=== PATIENT | female | born 1970 | race African-American/Black ===

== ENCOUNTER 2017-03-06 21:37 | Inpatient (IN) | payer OTHER ==
[~2017-03-06] VITALS: Ht 160 cm; Wt 108.9 kg
[2017-03-07] VITALS (14 sets, daily range): BP systolic 109–133; BP diastolic 56–84
[2017-03-07] MEDS ORDERED: ASPI1TAB30 PO (00:18)
[2017-03-07] MEDS ORDERED: CHOL2000 PO (00:18)
[2017-03-07] MEDS ORDERED: MULT-208 PO (00:18)
[2017-03-07] MEDS ORDERED: OMEG-128 PO (00:18)
[2017-03-07] MEDS ORDERED: OMEG1CAP6 PO (00:18)
[2017-03-07] MEDS: IV NORMAL SALINE 1000ML BAG 1,000 ML IV SCH ×4 (00:29→20:30)
[2017-03-07] MEDS ORDERED: ONDANSETRON PF 4 MG/2 ML VIAL. IV PRN ×3 (00:30→11:15)
[2017-03-07] MEDS ORDERED: MORPHINE SULFATE 4 MG/ML DISP.SYRIN. IV PRN (00:30)
[2017-03-07] MEDS ORDERED: PIP/TAZO PER PHARMACY MC PRN (00:30)
[2017-03-07] MEDS: PIPERACILLIN/TAZOBACTAM 4.5 GM in IV NORMAL SALINE 100ML 100 ML IV SCH ×5 (00:56→23:54)
[2017-03-07] MEDS ORDERED: BUPIVAC MPF-EPI 0.5%-1:200000 30 ML VIAL. ONE (07:04)
[2017-03-07] MEDS ORDERED: IV RINGERS,LACTATED 1000ML 1,000 ML IV SCH (07:05)
[2017-03-07] MEDS ORDERED: SURGICEL HEMOSTAT 4X8 EACH. ONE (07:05)
[2017-03-07] MEDS ORDERED: DESFLURANE 61 TO 120 MINUTES IH ONE (07:10)
[2017-03-07] MEDS ORDERED: fentaNYL PF VIAL 100 MCG/2 ML VIAL ONE (07:11)
[2017-03-07] MEDS ORDERED: NEOSTIGMINE METHYLSULFATE 5 MG/5 ML SYRINGE. ONE (07:11)
[2017-03-07] MEDS ORDERED: SUCCINYLCHOLINE 200 MG/10 ML VIAL. ONE (07:11)
[2017-03-07] MEDS ORDERED: ROCURONIUM 100 MG/10 ML VIAL. ONE (07:11)
[2017-03-07] MEDS ORDERED: MIDAZOLAM HCL/PF 2 MG/2 ML VIAL. ONE (07:11)
[2017-03-07] MEDS ORDERED: GLYCOPYRROLATE 1 MG/5 ML VIAL. ONE (07:11)
[2017-03-07] MEDS ORDERED: KETOROLAC 60 MG/2 ML INJ FOR OR. ONE (07:12)
[2017-03-07] MEDS ORDERED: DEXAMETHASONE SOD PHOS 20 MG/5 ML VIAL. ONE (07:12)
[2017-03-07] MEDS ORDERED: LIDOCAINE 2% 100 MG/5 ML SYRINGE. ONE (07:12)
[2017-03-07] MEDS ORDERED: PROPOFOL 20 ML IV ONE (07:12)
[2017-03-07] MEDS ORDERED: ONDANSETRON PF 4 MG/2 ML VIAL. ONE (07:12)
[2017-03-07] MEDS ORDERED: PROCHLORPERAZINE 10 MG/2 ML VIAL. IV PRN (07:15)
[2017-03-07] MEDS ORDERED: fentaNYL PF VIAL 100 MCG/2 ML VIAL IV PRN ×2 (07:15)
[2017-03-07] MEDS ORDERED: LIDOCAINE 1% 1 ML SYRINGE. ID PRN (07:15)
[2017-03-07] MEDS ORDERED: HYDROmorphone 2 MG/ML VIAL IV PRN (07:15)
[2017-03-07] MEDS ORDERED: MORPHINE SULFATE 2 MG/ML DISP.SYRIN. IV PRN (07:15)
--- NOTE | 2017-03-07 07:43 | PDOC ---
Provider Note Provider Note #[id number]--amklldw. CRISTIANO NELSON MD March 07, 2017 07:43
[2017-03-07 07:50] LABS: ALBUMIN 3.1 g/dL (3.4-5.0); ALBUMIN/GLOBULIN RATIO 0.8 (1.0-1.7); CALCIUM 8.2 mg/dL (8.5-10.1); CREATININE 0.9 mg/dL (0.6-1.0); GFR 81.6; POTASSIUM 3.2 mmol/L (3.5-5.1); TOTAL BILIRUBIN 0.7 mg/dL (0.2-1.0); TOTAL PROTEIN 7.1 g/dL (6.4-8.2)
[2017-03-07 08:00] LABS: HEMATOCRIT 34.4 % (36.0-47.0); HEMOGLOBIN 11.3 g/dL (12.0-15.5); RED BLOOD COUNT 4.12 x10^6/uL (3.50-5.40); RED CELL DISTRIBUTION WIDTH 15.7 % (11.5-14.5)
--- NOTE | 2017-03-07 08:31 | CONS ---
DATE OF CONSULTATION: 03/07/2017 CHIEF COMPLAINT: Abdominal pain. HISTORY OF PRESENT ILLNESS: The patient is a very pleasant 47-year-old female who presents with abdominal pain since yesterday. At first the pain felt like a hunger pain within the epigastric region, but then it slowly changed and became a sharp pain located in her right lateral abdomen almost in her right back and right upper quadrant. It became severe and she was unable to walk without significant pain with associated nausea and vomiting. The pain is constant, worse with movement and sharp in nature. When she was seen in the [place] ER where a CT scan was performed which demonstrated acute appendicitis, she was transferred down for antibiotics and laparoscopic appendectomy. PAST MEDICAL HISTORY: Denies. PAST SURGICAL HISTORY: 1. . 2. Foot surgery. HOME MEDICATIONS: 1. Excedrin p.r.n. 2. Vitamin D. 3. Fish oil. ALLERGIES: None. SOCIAL HISTORY: Nonsmoker, nondrinker. She is and she is employed in the [employer]. FAMILY HISTORY: Noncontributory to this illness. REVIEW OF SYSTEMS: CONSTITUTIONAL: No fevers or chills. EYES: No abrupt loss of vision or double vision. EARS, NOSE, MOUTH, AND THROAT: No loss of hearing or ringing in her ears. CARDIOVASCULAR: No chest pain or heart palpitations. RESPIRATORY: No cough, shortness of breath. GASTROINTESTINAL: See HPI. GENITOURINARY: No dysuria or hematuria. HEMATOLOGIC: No easy bleeding or bruising. MUSCULOSKELETAL: No new myalgias or arthralgias. DERMATOLOGIC: No new skin rashes or lesions. PSYCHIATRIC: No depression or anxiety. ENDOCRINE: No polyuria or polydipsia. PHYSICAL EXAMINATION: VITAL SIGNS: She is afebrile, heart rate 73, pulse is 18, blood pressure is 109/60. GENERAL: This is a well-developed, well-nourished female in no acute distress. Her BMI is 42.5. HEENT: Eyes; pupils are round and reactive. Sclerae nonicteric. She is wearing glasses. Head is atraumatic. Mucous membranes are moist. Face symmetric. NECK: Supple without cervical lymphadenopathy, no supraclavicular lymphadenopathy. Neck is nontender. CARDIOVASCULAR: Regular rate and rhythm. EXTREMITIES: 2+ right radial pulse. No pedal edema. RESPIRATORY: Chest wall is nontender to palpations, respirations are nonlabored. She is on room air. ABDOMEN: Soft, nondistended. She is tender lateral and superior to McBurney's point with rebound, no Rovsing sign. DERMATOLOGIC: Exposed portions of her skin are unremarkable without rashes or lesions. PSYCHIATRIC: She is cooperative with appropriate mood and affect. NEUROLOGIC: She can move all 4 extremities without difficulty. She is alert and oriented x 3. LABORATORY DATA: Lab from [facility] was reviewed. CT scan report as well as images were reviewed. ASSESSMENT: 1. Acute retrocecal appendicitis. 2. Morbid obesity with a BMI of 42.5. PLAN: The patient is being taken to the operating room for laparoscopic appendectomy, possible open. Of note, documentation of a negative test was not available from her ER visit at [facility]. My suspicion is that one would have been done before a CT scan, but I am unable to find documentation of that. She denies and we discussed the reality that if she were , my recommendation would be to proceed with laparoscopic appendectomy, possible open, out of risk of loss for untreated or delayed treatment of acute appendicitis. We also discussed that surgery in the first trimester may be associated with loss or congenital deformities, but since my treatment recommendation would not change regardless of the test results, the decision has been made to proceed with laparoscopic appendectomy. We will, at the time of Hernandez placement, get a sample of urine and send it for test just to have documentation, either positive or negative for . Additional risk of surgery include bleeding, infection, need to convert to open, injury to intra-abdominal structures, postoperative abscess and remote risk of heart attack, stroke, DVT, PE, pneumonia, and . Questions were answered. She desires to proceed with the procedure. CRISTIANO NELSON MD DR: MINDY/laureen JOB#: [id number] / [id number] TAZ Lazo MD
[2017-03-07 09:20] LABS: NEG OBC UR NEG; POS OBC UR POS
[2017-03-07] MEDS ORDERED: OXYC-323 PO (10:47)
--- NOTE | 2017-03-07 11:10 | PDOC1 ---
History and Physical Date of Admission Date of Admission 03/06/17 Identification/Chief Complaint Chief Complaint abd pain Problems: Source Source: Chart review, Patient History of Present Illness History of Present Illness 47yo F, no PMH, was transferred from [facility] for acute merle. Pt started to have abd pain early today, epigastric, then moved down to right lower abd, severe ,no N/V. BM normal. no fever, chills, cough ,sob, chest pain. She went to [facility] ER, CT showed acute appendicities. pt seen post op today, feels ok for now. Past Medical History Past Medical History none Past Surgical History Past Surgical History: Family History Family History: No Significant Social History Smoke: No ALCOHOL: none Drugs: None Current Medications Current Medications Current Medications Medications (Trade) Dose Ordered Sig/Gregorio Start Time Stop Time Status Last Admin Dose Admin Bupivacaine HCl/ Epinephrine Bitart (Sensorcain-Mpf Epi 0.5%-1:932691) 30 ml STK-MED ONCE 03/07/17 07:04 03/07/17 07:05 DC 03/07/17 08:25 6 ML Cellulose 1 each STK-MED ONCE 03/07/17 07:05 03/07/17 07:06 DC Desflurane (Suprane) 60 ml STK-MED ONCE 03/07/17 07:10 03/07/17 07:11 DC Dexamethasone Sodium Phosphate (Decadron) 20 mg STK-MED ONCE 03/07/17 07:12 03/07/17 07:13 DC Fentanyl Citrate (Fentanyl 2ml Vial) 100 mcg STK-MED ONCE 03/07/17 07:11 03/07/17 07:12 DC Glycopyrrolate (Robinul) 1 mg STK-MED ONCE 03/07/17 07:11 03/07/17 07:12 DC Hydromorphone HCl (Dilaudid) 0.5 mg PRN Q10MIN PRN 03/07/17 07:15 03/08/17 07:14 Ketorolac Tromethamine (Toradol For Or Only) 60 mg STK-MED ONCE 03/07/17 07:12 03/07/17 07:13 DC Lidocaine HCl (Lidocaine HCl 2% Abboject) 100 mg STK-MED ONCE 03/07/17 07:12 03/07/17 07:13 DC Midazolam HCl (Versed) 2 mg STK-MED ONCE 03/07/17 07:11 03/07/17 07:12 DC Morphine Sulfate 1 mg PRN Q10MIN PRN 03/07/17 07:15 03/08/17 07:14 Neostigmine Methylsulfate 5 mg STK-MED ONCE 03/07/17 07:11 03/07/17 07:12 DC Ondansetron HCl (Zofran) 4 mg STK-MED ONCE 03/07/17 07:12 03/07/17 07:13 DC Piperacillin Sod/ Tazobactam Sod (Zosyn Per Pharmacy) 1 each PRN DAILY PRN 03/07/17 00:30 Piperacillin Sod/ Tazobactam Sod 4.5 gm/Sodium Chloride 100 ml @ 200 mls/hr Q6HRS 03/07/17 00:45 03/07/17 00:56 200 MLS/HR Prochlorperazine Edisylate (Compazine) 5 mg PACU PRN PRN 03/07/17 07:15 03/08/17 07:14 03/07/17 09:25 5 MG Propofol 20 ml @ As Directed STK-MED ONCE 03/07/17 07:12 03/07/17 07:13 DC Rocuronium [place] (Zemuron) 100 mg STK-MED ONCE 03/07/17 07:11 03/07/17 07:12 DC Sodium Chloride 1,000 ml @ 150 mls/hr Q6H40M 03/07/17 00:30 03/07/17 00:29 150 MLS/HR Succinylcholine Chloride (Anectine) 200 mg STK-MED ONCE 03/07/17 07:11 03/07/17 07:12 DC Allergies Allergies Allergies Coded Allergies Type Severity Reaction Last Updated Verified No Known Drug Allergies 03/07/17 No ROS Review of System CONSTITUTIONAL: No fever or chills EYES: No recent changes SKIN: No rash or itching CARDIOVASCULAR: No chest pain, syncope, palpitations, or edema RESPIRATORY: No SOB or cough GASTROINTESTINAL: No nausea, vomiting or abdominal pain NEUROLOGICAL: No headaches or weakness ENDOCRINE: No cold or heat intolerance GENITOURINARY: No urgency or frequency of urination MUSCULOSKELETAL: No back pain or joint pain LYMPHATICS: No enlarged lymph nodes PSYCHIATRIC: No anxiety or depression Physical Exam Physical Exam GEN.: No apparent distress. Alert and oriented. HEENT: Head is normocephalic, atraumatic NECK: Supple. LUNGS: Clear to auscultation. HEART: RRR, S1, S2 present. Peripheral pulses intact ABDOMEN: Soft, Positive bowel sounds. mild abd tenderness, clean sx wound EXTREMITIES: Without any cyanosis. NEUROLOGIC: Normal speech, normal tone PSYCHIATRIC: Normal affect, normal mood. SKIN: No ulcerations Vitals Vitals Vital Signs Date Time Temp Pulse Resp B/P (MAP) Pulse Ox O2 Delivery O2 Flow Rate FiO2 03/07/17 10:16 Nasal Cannula 2.0 03/07/17 09:55 97.4 68 20 124/71 96 97.4 Labs Labs Laboratory Tests Test 03/07/17 03:30 03/07/17 08:15 White Blood Count 9.0 x10^3/uL (4.0-11.0) Red Blood Count 4.12 x10^6/uL (3.50-5.40) Hemoglobin 11.3 g/dL (12.0-15.5) Hematocrit 34.4 % (36.0-47.0) Mean Corpuscular Volume 84 fL (79-100) Mean Corpuscular Hemoglobin 28 pg (25-35) Mean Corpuscular Hemoglobin Concent 33 g/dL (31-37) Red Cell Distribution Width 15.7 % (11.5-14.5) Platelet Count 162 x10^3/uL (140-400) Sodium Level 140 mmol/L (136-145) Potassium Level 3.2 mmol/L (3.5-5.1) Chloride Level 106 mmol/L (98-107) Carbon Dioxide Level 23 mmol/L (21-32) Anion Gap 11 (6-14) Blood Urea Nitrogen 10 mg/dL (7-20) Creatinine 0.9 mg/dL (0.6-1.0) Estimated GFR (Cockcroft-Gault) 81.6 BUN/Creatinine Ratio 11 (6-20) Glucose Level 109 mg/dL (70-99) Calcium Level 8.2 mg/dL (8.5-10.1) Total Bilirubin 0.7 mg/dL (0.2-1.0) Aspartate Amino Transf (AST/SGOT) 14 U/L (15-37) Alanine Aminotransferase (ALT/SGPT) 21 U/L (14-59) Alkaline Phosphatase 72 U/L (46-116) Total Protein 7.1 g/dL (6.4-8.2) Albumin 3.1 g/dL (3.4-5.0) Albumin/Globulin Ratio 0.8 (1.0-1.7) Urine Test Negative (NEG) Laboratory Tests Test 03/07/17 03:30 03/07/17 08:15 White Blood Count 9.0 x10^3/uL (4.0-11.0) Red Blood Count 4.12 x10^6/uL (3.50-5.40) Hemoglobin 11.3 g/dL (12.0-15.5) Hematocrit 34.4 % (36.0-47.0) Mean Corpuscular Volume 84 fL (79-100) Mean Corpuscular Hemoglobin 28 pg (25-35) Mean Corpuscular Hemoglobin Concent 33 g/dL (31-37) Red Cell Distribution Width 15.7 % (11.5-14.5) Platelet Count 162 x10^3/uL (140-400) Sodium Level 140 mmol/L (136-145) Potassium Level 3.2 mmol/L (3.5-5.1) Chloride Level 106 mmol/L (98-107) Carbon Dioxide Level 23 mmol/L (21-32) Anion Gap 11 (6-14) Blood Urea Nitrogen 10 mg/dL (7-20) Creatinine 0.9 mg/dL (0.6-1.0) Estimated GFR (Cockcroft-Gault) 81.6 BUN/Creatinine Ratio 11 (6-20) Glucose Level 109 mg/dL (70-99) Calcium Level 8.2 mg/dL (8.5-10.1) Total Bilirubin 0.7 mg/dL (0.2-1.0) Aspartate Amino Transf (AST/SGOT) 14 U/L (15-37) Alanine Aminotransferase (ALT/SGPT) 21 U/L (14-59) Alkaline Phosphatase 72 U/L (46-116) Total Protein 7.1 g/dL (6.4-8.2) Albumin 3.1 g/dL (3.4-5.0) Albumin/Globulin Ratio 0.8 (1.0-1.7) Urine Test Negative (NEG) VTE Prophylaxis Ordered VTE Prophylaxis Devices: Yes VTE Pharmacological Prophylaxi: No Assessment/Plan Assessment/Plan 1 acute appendicitis post lap appendectomy on 03/07 2. morbid obesity 3. migraine, chronic 4. hypokalemia plan: 1. fu with sx, post op care 2. ivf pain control cont home meds replete K on zosyn, should be able to dc when dc, hope tmr CHUY MOREL MD March 07, 2017 11:10
[2017-03-07] MEDS ORDERED: POTASSIUM CHLORIDE 20 MEQ TABLET.ER. PO ONE (11:15)
[2017-03-07] MEDS ORDERED: ACETAMINOPHEN 325 MG TABLET. PO PRN (11:15)
[2017-03-07] MEDS ORDERED: ASA/APAP/CAFFEINE 250/250/65MG TABLET. PO PRN (11:15)
[2017-03-07] MEDS: CHOLECALCIFEROL (VITAMIN D3) 1,000 UNIT TABLET PO SCH (11:51)
[2017-03-07] MEDS: MULTIVITAMIN with MINERAL TABLET. PO SCH (11:51)
[2017-03-07] MEDS: OMEGA-3 FATTY ACIDS/FISH OIL 1,000 MG CAPSULE. PO SCH (11:51)
--- NOTE | 2017-03-07 12:44 | PDOC ---
BRIEF OPERATIVE NOTE Pre-Op Diagnosis appendicitis lap appy osmar nelson ebl 10 ivf 1000 mayuri well to rr stable. CRISTIANO NELSON MD March 07, 2017 12:44
--- NOTE | 2017-03-07 14:30 | OP ---
DATE OF SURGERY: 03/07/2017 PREOPERATIVE DIAGNOSIS: Acute appendicitis. POSTOPERATIVE DIAGNOSIS: Acute appendicitis. PROCEDURE: Laparoscopic appendectomy. SURGEON: Cristiano Nelson M.D. ANESTHESIA: General. ESTIMATED BLOOD LOSS: 10 mL. IV FLUIDS: 2000 mL. INDICATIONS: The patient is a 47-year-old female who presents with acute appendicitis. FINDINGS: She had acute nonperforated, nongangrenous, retrocecal appendicitis. DESCRIPTION OF PROCEDURE: After informed consent was obtained, the patient was taken to the operating room and placed in supine position. After adequate induction of general anesthesia, she was prepped and draped in usual sterile fashion. An umbilical skin incision was made with a scalpel, subcutaneous tissues with a hemostat. [facility] was used to grab the fascia and lift it anteriorly. Veress was used to gain access to the peritoneal cavity. Low opening pressures confirmed intraperitoneal placement of Veress. Pneumoperitoneum to 15 mmHg was established followed by placement of a 5 mm port. A 5 mm 30 degree lens was inserted, which revealed good port placement. No evidence of entry trauma. She was placed head down and rotated towards her left. She did have some adhesions of the omentum in her left lower quadrant; therefore, her ports were placed, one was a 5 mm suprapubic port to the right of midline under direct laparoscopic vision, one was a right upper quadrant 12 mm port. Both were placed after injecting with local anesthetic and both were placed under direct vision. The base of appendix was unremarkable. Window was made at the base of the appendix with a [place] dissector. Laparoscopic CARTER blue load stapler was used to divide the base of appendix. Laparoscopic CARTER white load stapler was used to divide the mesoappendix. The appendix was placed in laparoscopic bag and brought out through the right upper quadrant incision. The appendix had been retrocecal. There were some bleeding from the mesoappendiceal staple line that was controlled with application of a clip mirror inspector. Otherwise, the right upper quadrant was irrigated. Irrigant returned clear. Pelvis was irrigated. Irrigant returned clear. Right upper quadrant was irrigated and the irrigant returned clear. Staple lines were intact and hemostatic. Fascial closure device was used to close the fascia at right upper quadrant incision. Ports were removed under direct vision. They were hemostatic. Pneumoperitoneum was desufflated. Skin incisions were closed with 4-0 Monocryl in subcuticular fashion. Sterile dressings were placed. She tolerated the procedure well. There were no apparent complications. She was then transferred in stable condition to the recovery room. CRISTIANO NELSON MD DR: MINDY/laureen JOB#: [id number] / [id number] TAZ Lazo MD
[2017-03-07] MEDS: oxyCODONE/APAP 5/325 1 TAB TABLET PO PRN ×2 (17:22→21:29)
[2017-03-08 03:20] VITALS: BP 149/75
[2017-03-08] MEDS: oxyCODONE/APAP 5/325 1 TAB TABLET PO PRN ×2 (03:23→08:12)
[2017-03-08 05:29] LABS: BASO % 0 % (0-3); EOS % 0 % (0-3); HEMATOCRIT 31.7 % (36.0-47.0); HEMOGLOBIN 10.4 g/dL (12.0-15.5); LYMPH # 1.7 x10^3/uL (1.0-4.8); LYMPH % 18 % (24-48); MEAN CORPUSCULAR HEMOGLOBIN 27 pg (25-35); MEAN CORPUSCULAR HGB CONC 33 g/dL (31-37); MEAN CORPUSCULAR VOLUME 83 fL (79-100); MONO % 6 % (0-9); NEUT % 76 % (31-73); PLATELET COUNT 174 x10^3/uL (140-400); RED CELL DISTRIBUTION WIDTH 15.3 % (11.5-14.5); WHITE BLOOD COUNT 9.7 x10^3/uL (4.0-11.0)
[2017-03-08] MEDS: PIPERACILLIN/TAZOBACTAM 4.5 GM in IV NORMAL SALINE 100ML 100 ML IV SCH (05:33)
[2017-03-08 05:41] LABS: CALCIUM 8.6 mg/dL (8.5-10.1); GFR 72.2; POTASSIUM 3.5 mmol/L (3.5-5.1)
[2017-03-08 07:00] VITALS: BP 106/60
[2017-03-08] MEDS: OMEGA-3 FATTY ACIDS/FISH OIL 1,000 MG CAPSULE. PO SCH (08:10)
[2017-03-08] MEDS: MULTIVITAMIN with MINERAL TABLET. PO SCH (08:11)
[2017-03-08] MEDS: CHOLECALCIFEROL (VITAMIN D3) 1,000 UNIT TABLET PO SCH (08:11)
--- NOTE | 2017-03-08 09:53 | PDOC ---
MARGOT WEBB LIFE EDUCATOR 03/08/17 0953: SURGICAL PROGRESS NOTE Subjective tolerating diet pain improved from surgery no n/v urinating Vital Signs Vital Signs Date Time Temp Pulse Resp B/P (MAP) Pulse Ox O2 Delivery O2 Flow Rate FiO2 03/08/17 09:12 Room Air 03/08/17 07:00 97.5 59 16 106/60 (75) 97 97.5 03/07/17 14:00 2.0 I&O Intake and Output 03/08/17 07:00 Intake Total 1773 ml Output Total 475 ml Balance 1298 ml Intake Oral 780 ml IV Total 993 ml Output Urine Total 475 ml # Voids 2 General: Alert, Oriented X3, Cooperative, No acute distress Abdomen: Soft, Other (lap dressings dry, incisional TTP) Labs Laboratory Tests Test 03/07/17 03:30 03/07/17 08:15 03/08/17 05:20 White Blood Count 9.0 x10^3/uL (4.0-11.0) 9.7 x10^3/uL (4.0-11.0) Red Blood Count 4.12 x10^6/uL (3.50-5.40) 3.80 x10^6/uL (3.50-5.40) Hemoglobin 11.3 g/dL (12.0-15.5) 10.4 g/dL (12.0-15.5) Hematocrit 34.4 % (36.0-47.0) 31.7 % (36.0-47.0) Mean Corpuscular Volume 84 fL (79-100) 83 fL (79-100) Mean Corpuscular Hemoglobin 28 pg (25-35) 27 pg (25-35) Mean Corpuscular Hemoglobin Concent 33 g/dL (31-37) 33 g/dL (31-37) Red Cell Distribution Width 15.7 % (11.5-14.5) 15.3 % (11.5-14.5) Platelet Count 162 x10^3/uL (140-400) 174 x10^3/uL (140-400) Sodium Level 140 mmol/L (136-145) 139 mmol/L (136-145) Potassium Level 3.2 mmol/L (3.5-5.1) 3.5 mmol/L (3.5-5.1) Chloride Level 106 mmol/L (98-107) 107 mmol/L (98-107) Carbon Dioxide Level 23 mmol/L (21-32) 24 mmol/L (21-32) Anion Gap 11 (6-14) 8 (6-14) Blood Urea Nitrogen 10 mg/dL (7-20) 10 mg/dL (7-20) Creatinine 0.9 mg/dL (0.6-1.0) 1.0 mg/dL (0.6-1.0) Estimated GFR (Cockcroft-Gault) 81.6 72.2 BUN/Creatinine Ratio 11 (6-20) Glucose Level 109 mg/dL (70-99) 126 mg/dL (70-99) Calcium Level 8.2 mg/dL (8.5-10.1) 8.6 mg/dL (8.5-10.1) Total Bilirubin 0.7 mg/dL (0.2-1.0) Aspartate Amino Transf (AST/SGOT) 14 U/L (15-37) Alanine Aminotransferase (ALT/SGPT) 21 U/L (14-59) Alkaline Phosphatase 72 U/L (46-116) Total Protein 7.1 g/dL (6.4-8.2) Albumin 3.1 g/dL (3.4-5.0) Albumin/Globulin Ratio 0.8 (1.0-1.7) Urine Test Negative (NEG) Neutrophils (%) (Auto) 76 % (31-73) Lymphocytes (%) (Auto) 18 % (24-48) Monocytes (%) (Auto) 6 % (0-9) Eosinophils (%) (Auto) 0 % (0-3) Basophils (%) (Auto) 0 % (0-3) Neutrophils # (Auto) 7.4 x10^3uL (1.8-7.7) Lymphocytes # (Auto) 1.7 x10^3/uL (1.0-4.8) Monocytes # (Auto) 0.6 x10^3/uL (0.0-1.1) Eosinophils # (Auto) 0.0 x10^3/uL (0.0-0.7) Basophils # (Auto) 0.0 x10^3/uL (0.0-0.2) Laboratory Tests Test 03/08/17 05:20 White Blood Count 9.7 x10^3/uL (4.0-11.0) Red Blood Count 3.80 x10^6/uL (3.50-5.40) Hemoglobin 10.4 g/dL (12.0-15.5) Hematocrit 31.7 % (36.0-47.0) Mean Corpuscular Volume 83 fL (79-100) Mean Corpuscular Hemoglobin 27 pg (25-35) Mean Corpuscular Hemoglobin Concent 33 g/dL (31-37) Red Cell Distribution Width 15.3 % (11.5-14.5) Platelet Count 174 x10^3/uL (140-400) Neutrophils (%) (Auto) 76 % (31-73) Lymphocytes (%) (Auto) 18 % (24-48) Monocytes (%) (Auto) 6 % (0-9) Eosinophils (%) (Auto) 0 % (0-3) Basophils (%) (Auto) 0 % (0-3) Neutrophils # (Auto) 7.4 x10^3uL (1.8-7.7) Lymphocytes # (Auto) 1.7 x10^3/uL (1.0-4.8) Monocytes # (Auto) 0.6 x10^3/uL (0.0-1.1) Eosinophils # (Auto) 0.0 x10^3/uL (0.0-0.7) Basophils # (Auto) 0.0 x10^3/uL (0.0-0.2) Sodium Level 139 mmol/L (136-145) Potassium Level 3.5 mmol/L (3.5-5.1) Chloride Level 107 mmol/L (98-107) Carbon Dioxide Level 24 mmol/L (21-32) Anion Gap 8 (6-14) Blood Urea Nitrogen 10 mg/dL (7-20) Creatinine 1.0 mg/dL (0.6-1.0) Estimated GFR (Cockcroft-Gault) 72.2 Glucose Level 126 mg/dL (70-99) Calcium Level 8.6 mg/dL (8.5-10.1) Assessment/Plan s/p lap appy ok to PR home FU 2 weeks Problems: CRISTIANO NELSON MD 03/08/17 1122: SURGICAL PROGRESS NOTE Assessment/Plan i saw her today. smiling, wanting to go home. doing well. agree with dc today. Problems: MARGOT WEBB APRN March 08, 2017 09:53 CRISTIANO NELSON MD March 08, 2017 11:22
[2017-03-08 11:00] VITALS: BP 129/74
--- NOTE | 2017-03-08 12:07 | PDOC3 ---
Discharge Summary Visit Information Date of Admission: March 07, 2017 Date of Discharge: March 08, 2017 Admitting Diagnosis: abd pain Final Diagnosis 1 acute appendicitis post lap appendectomy on 03/07 2. morbid obesity 3. migraine, chronic 4. hypokalemia p Brief Hospital Course Allergies Allergies Coded Allergies Type Severity Reaction Last Updated Verified No Known Drug Allergies 03/07/17 No Vital Signs Vital Signs Date Time Temp Pulse Resp B/P (MAP) Pulse Ox O2 Delivery O2 Flow Rate FiO2 03/08/17 11:00 98.1 65 16 129/74 (92) 96 Room Air 98.1 03/07/17 14:00 2.0 Lab Results Laboratory Tests Test 03/07/17 03:30 03/07/17 08:15 03/08/17 05:20 White Blood Count 9.0 x10^3/uL (4.0-11.0) 9.7 x10^3/uL (4.0-11.0) Red Blood Count 4.12 x10^6/uL (3.50-5.40) 3.80 x10^6/uL (3.50-5.40) Hemoglobin 11.3 g/dL (12.0-15.5) 10.4 g/dL (12.0-15.5) Hematocrit 34.4 % (36.0-47.0) 31.7 % (36.0-47.0) Mean Corpuscular Volume 84 fL (79-100) 83 fL (79-100) Mean Corpuscular Hemoglobin 28 pg (25-35) 27 pg (25-35) Mean Corpuscular Hemoglobin Concent 33 g/dL (31-37) 33 g/dL (31-37) Red Cell Distribution Width 15.7 % (11.5-14.5) 15.3 % (11.5-14.5) Platelet Count 162 x10^3/uL (140-400) 174 x10^3/uL (140-400) Sodium Level 140 mmol/L (136-145) 139 mmol/L (136-145) Potassium Level 3.2 mmol/L (3.5-5.1) 3.5 mmol/L (3.5-5.1) Chloride Level 106 mmol/L (98-107) 107 mmol/L (98-107) Carbon Dioxide Level 23 mmol/L (21-32) 24 mmol/L (21-32) Anion Gap 11 (6-14) 8 (6-14) Blood Urea Nitrogen 10 mg/dL (7-20) 10 mg/dL (7-20) Creatinine 0.9 mg/dL (0.6-1.0) 1.0 mg/dL (0.6-1.0) Estimated GFR (Cockcroft-Gault) 81.6 72.2 BUN/Creatinine Ratio 11 (6-20) Glucose Level 109 mg/dL (70-99) 126 mg/dL (70-99) Calcium Level 8.2 mg/dL (8.5-10.1) 8.6 mg/dL (8.5-10.1) Total Bilirubin 0.7 mg/dL (0.2-1.0) Aspartate Amino Transf (AST/SGOT) 14 U/L (15-37) Alanine Aminotransferase (ALT/SGPT) 21 U/L (14-59) Alkaline Phosphatase 72 U/L (46-116) Total Protein 7.1 g/dL (6.4-8.2) Albumin 3.1 g/dL (3.4-5.0) Albumin/Globulin Ratio 0.8 (1.0-1.7) Urine Test Negative (NEG) Neutrophils (%) (Auto) 76 % (31-73) Lymphocytes (%) (Auto) 18 % (24-48) Monocytes (%) (Auto) 6 % (0-9) Eosinophils (%) (Auto) 0 % (0-3) Basophils (%) (Auto) 0 % (0-3) Neutrophils # (Auto) 7.4 x10^3uL (1.8-7.7) Lymphocytes # (Auto) 1.7 x10^3/uL (1.0-4.8) Monocytes # (Auto) 0.6 x10^3/uL (0.0-1.1) Eosinophils # (Auto) 0.0 x10^3/uL (0.0-0.7) Basophils # (Auto) 0.0 x10^3/uL (0.0-0.2) Laboratory Tests Test 03/08/17 05:20 White Blood Count 9.7 x10^3/uL (4.0-11.0) Red Blood Count 3.80 x10^6/uL (3.50-5.40) Hemoglobin 10.4 g/dL (12.0-15.5) Hematocrit 31.7 % (36.0-47.0) Mean Corpuscular Volume 83 fL (79-100) Mean Corpuscular Hemoglobin 27 pg (25-35) Mean Corpuscular Hemoglobin Concent 33 g/dL (31-37) Red Cell Distribution Width 15.3 % (11.5-14.5) Platelet Count 174 x10^3/uL (140-400) Neutrophils (%) (Auto) 76 % (31-73) Lymphocytes (%) (Auto) 18 % (24-48) Monocytes (%) (Auto) 6 % (0-9) Eosinophils (%) (Auto) 0 % (0-3) Basophils (%) (Auto) 0 % (0-3) Neutrophils # (Auto) 7.4 x10^3uL (1.8-7.7) Lymphocytes # (Auto) 1.7 x10^3/uL (1.0-4.8) Monocytes # (Auto) 0.6 x10^3/uL (0.0-1.1) Eosinophils # (Auto) 0.0 x10^3/uL (0.0-0.7) Basophils # (Auto) 0.0 x10^3/uL (0.0-0.2) Sodium Level 139 mmol/L (136-145) Potassium Level 3.5 mmol/L (3.5-5.1) Chloride Level 107 mmol/L (98-107) Carbon Dioxide Level 24 mmol/L (21-32) Anion Gap 8 (6-14) Blood Urea Nitrogen 10 mg/dL (7-20) Creatinine 1.0 mg/dL (0.6-1.0) Estimated GFR (Cockcroft-Gault) 72.2 Glucose Level 126 mg/dL (70-99) Calcium Level 8.6 mg/dL (8.5-10.1) Brief Hospital Course Ms. Julian is a 47 old FEMALE,transfer from [facility] acute appendicitis seen on CT for acute abd pain Taken to OR Dr. Veronica, EBL 10, clear bases, vitals stable, no white count no fever here, got IV zosyn while in hospital, 6 doses, will not continue pain meds for DC Discharge Information Condition at Discharge: Improved Follow Up: Weeks Scheduled Cholecalciferol (Vitamin D3) (Vitamin D), 1 CAP PO DAILY, (Reported) Multivitamin (Multi-Day Vitamins), 1 TAB PO DAILY, (Reported) [place]-3 Fatty Acids/Fish Oil (Fish Oil 1,000 Mg Capsule), 1 EACH PO DAILY, ( Reported) [place]-3/Dha/Epa/Fish Oil ([place] 3 500 Softgel), 1 EACH PO DAILY, (Reported) Scheduled PRN Aspirin/Acetaminophen/Caffeine (Excedrin Migraine Caplet), 1 EACH PO PRN Q6HRS PRN for HEADACHE, (Reported) Patient Instructions Patient Instructions percocet 5/325 mg tab PO Q4 prn pain #32 colace 100mg daily TAZ FALCON MD March 08, 2017 12:07
--- NOTE | 2017-03-08 18:09 | PATHOLOGY ---
PATHOLOGY REPORT * * * * * * * * FINAL DIAGNOSIS: Appendix, laparoscopic appendectomy: - Acute appendicitis. COMMENT: There is no evidence of rupture. There is no evidence of malignancy. REPORT ELECTRONICALLY SIGNED BY: Gene Rashid M.D. DATE/TIME: 03/08/2017 18:09 * * * * * * * * MICROSCOPIC DESCRIPTION: GROSS PATHOLOGY: Received in formalin labeled "appendix" is a vermiform appendix with attached fibroadipose tissue. The appendiceal measurements are 7 x 1 x 1 cm. It is markedly dilated centrally and appears to be potentially perforated in one location. No mass lesions are identified. The amount of mesenteric fibroadipose tissue measures up to 2 cm. Mold Unloader sections are submitted in cassette A1. (SWK:csd; d/t: 03/07-03/2017) INITIAL CPT CODE(S): A; 55808 Professional services performed [place] [facility] [address] Technical services performed by [facility] at [address] [place] [address], [facility] [address] [address]. SPECIMEN(S) RECEIVED: A.Appendix CLINICAL HISTORY: Appendicitis PATIENT: TITO GARCIA /AGE: 301/11/1970 (Age: 47) PATIENT #: [id number] ALT CASE #: SPECIMEN COLLECTION DATE: 03/07/2017 SPECIMEN RECEIVED DATE: 03/07/2017 [facility] - [address] [place] [address] - PHONE: [phone] * * * END OF REPORT * * *
== END 2017-03-08 13:25 | disposition home or self-care (01) | DRG 342 ==
LOC: 4 NORTH 23:38
PROVIDERS: ADMIT Internal Medicine; ATTEND Internal Medicine
PROC: 0DTJ4ZZ Resection of Appendix, Percutaneous Endoscopic Approach (ICD-10-PCS; principal; 2017-03-07 07:30)
DX: K35.80 Unspecified acute appendicitis (principal); Z68.41 Body mass index [BMI] 40.0-44.9, adult; E66.01 Morbid (severe) obesity due to excess calories; E87.6 Hypokalemia; G43.909 Migraine, unspecified, not intractable, without status migrainosus; K66.0 Peritoneal adhesions (postprocedural) (postinfection); K66.8 Other specified disorders of peritoneum
CPT/HCPCS: 36415; 80048; 80053; 81025; 85027; 88304; C1782; J0330; J0780; J1100; J1885; J2250; J2270; J2405; J2543; J2704; J2710; J3010; J3490; J7030; J7120